=== PATIENT | male | born 1985 | race American Indian/Alaskan Native ===

== ENCOUNTER 2019-02-03 19:33 | Emergency (ER) | payer OTHER ==
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
[2019-02-03 23:46] VITALS: BP 125/63
== END 2019-02-04 | disposition home or self-care (01) ==
LOC: ED 19:33
DX: S13.9XXA Sprain of joints and ligaments of unspecified parts of neck, initial encounter (principal); S29.012A Strain of muscle and tendon of back wall of thorax, initial encounter; S20.212A Contusion of left front wall of thorax, initial encounter; M54.6 Pain in thoracic spine; V49.59XA Passenger injured in collision with other motor vehicles in traffic accident, initial encounter; Y93.89 Activity, other specified; Y92.89 Other specified places as the place of occurrence of the external cause; Y99.8 Other external cause status
CPT/HCPCS: 70450; 72125; 72128